=== PATIENT | male | born 1965 | race Caucasian/White ===

== ENCOUNTER 2018-05-23 10:26 | Emergency (ER) | payer SELFPAY ==
[2018-05-23] MEDS ORDERED: SODIUM CHLORIDE 0.9% (FLUSH) 10 ML SYG IV PRN (10:37)
[2018-05-23] MEDS ORDERED: SODIUM CHLORIDE 0.9% 1000ML 1,000 ML IVS PRN (10:37)
--- NOTE | 2018-05-23 10:42 | ED.PDOC ---
History of Present Illness - General Chief Complaint: Head Injury Stated Complaint: fall Time Seen by Provider: 05/23/18 10:38 Source: EMS Exam Limitations: clinical condition - non verbal, physical impairment - History of Present Illness Initial Comments: Flaco Estrada 52 y/o male [place] by EMS [place] fell face down then had brief LOC,unresponsive after incident but on his arrival he was awake ,staring and non verbal. Occurred: just prior to arrival Severity: severe Pain Location: head Method of Injury: fall Improving Factors: nothing Worsening Factors: nothing Loss of Consciousness: brief (seconds) Associated Symptoms (Fall): other - non verbal Allergies/Adverse Reactions: Allergies NO KNOWN ALLERGY Allergy (Verified 05/23/18 10:36) Review of Systems - Review of Systems Constitutional: States: no symptoms reported, weakness EENTM: States: no symptoms reported Respiratory: States: no symptoms reported Cardiology: States: no symptoms reported Unable to Obtain Due To: condition, other - non vebal Past Medical History (General) - Patient Medical History Hx Stroke: Yes Family Medical History - Family History Father Family History: Unknown Living Status: Unknown Physical Exam - Physical Exam General Appearance: Other - awake,non verbal Head Injury: other - t shaped laceration scalp Eye Exam: bilateral normal ENT Exam: no evidence of ENT injury, no dental injury Neck Exam: non-tender, normal inspection Cardiovascular/Respiratory: regular rate, rhythm, no M/R/G, normal peripheral pulses Gastrointestinal/Abdominal: non tender, soft Back Exam: normal inspection Extremity Exam: no evidence of injury, non-tender, no pedal edema Neurologic: no motor/sensory deficits, other - stare when name mentioned non verbal Skin Exam: normal color - Garrett Coma Score Best Eye Response ([place]): (4) open spontaneously Best Verbal Response ([place]): (2) incomprehsible sounds Best Motor Response ([place]): (5) localizes to pain Progress - Progress Progress: 05/23/18 11:30 Vital Signs - 8 hr 05/23/18 05/23/18 10:38 10:41 Temperature 96.8 F L Pulse Rate [ 100 H Right Brachial] Respiratory 22 24 Rate Blood Pressure 198/131 [Right Arm] O2 Sat by Pulse 98 97 Oximetry - EKG/XRAY/CT EKG: Sinus, no ST T wave changes Comments: HR-92 CT Ordered: Yes - head,neck, chest,abdomen-no acute findings Departure - Departure Clinical Impression: Hyponatremia Fall down stairs Qualifiers: Encounter type: initial encounter Qualified Code(s): W10.8XXA - Fall (on) (from) other stairs and steps, initial encounter Laceration of forehead Qualifiers: Encounter type: initial encounter Qualified Code(s): S01.81XA - Laceration without foreign body of other part of head, initial encounter Brain concussion Qualifiers: Encounter type: initial encounter Loss of consciousness presence/duration: with LOC of unspecified duration Qualified Code(s): S06.0X9A - Concussion with loss of consciousness of unspecified duration, initial encounter Time of Disposition: 11:55 Disposition: Transfer to Hospital Condition: Fair Departure Forms: ED Discharge - Pt. Copy, Patient Portal Self Enrollment Instructions: DI for Concussion, DI for Closed Head Injury Transfer to Outside Facility - Transfer Information Accepting Provider:: Dr. Swapna Man Accepting Facility: [facility] Reason for Transfer: required specialist not available - neurologist/neurosurgeon
[2018-05-23 10:49] VITALS: TEMP 96.8
--- NOTE | 2018-05-23 11:07 | RAD ---
EXAM DESCRIPTION: Chest,1 View CLINICAL HISTORY: 52 years Male, trauma COMPARISON: None. TECHNIQUE: AP portable chest. FINDINGS: Heart size is prominent with increased pulmonary vascularity. No consolidating infiltrate. No pulmonary mass or worrisome nodule. No pneumothorax or pleural effusion. Bones are unremarkable. IMPRESSION: Large heart with mildly increased vascularity. Electronically signed by: Gomez Ortiz MD 05/23/2018 11:04 AM [employer] METAL[employer]ING SUPERVISOR
--- NOTE | 2018-05-23 11:10 | CT ---
EXAM DESCRIPTION: Abdomen/Pelvis w/Contrast CLINICAL HISTORY: 52 years Male, trauma COMPARISON: None available. TECHNIQUE: Contiguous 3 mm axial images were obtained from the lung bases to the level of the proximal femora after the administration of intravenous and oral contrast. Sagittal and coronal reconstructions were reviewed. FINDINGS: THORAX: The imaged lower thorax demonstrates no gross abnormality. LIVER: The liver demonstrates diffuse fatty infiltration. No evidence of lacerations. GALLBLADDER: Grossly unremarkable. PANCREAS: Appears normal with no cystic or solid lesions. SPLEEN: Normal ADRENAL GLANDS: Normal with no nodules or masses. KIDNEYS: Both kidneys enhance symmetrically with no hydronephrosis or nephrolithiasis or perinephric fluid collections. No evidence of lacerations or hemorrhage. The visualized ureters appear grossly unremarkable. STOMACH: Small hiatal hernia with evidence of reflux. The stomach is not well-distended limiting evaluation. SMALL BOWEL: The small bowel loops demonstrate variable degrees of distention with no abnormal dilatation or other signs to suggest bowel obstruction. LARGE BOWEL: Majority of the colon is not well-distended limiting detailed evaluation. However no evidence of eccentric hematoma or bowel injury. The appendix is well-visualized and appears normal No evidence of free intraperitoneal air or fluid. RETROPERITONEUM: The abdominal aorta is nonaneurysmal with no significant atherosclerosis. The inferior vena cava is normal in size and caliber. No abnormally enlarged retroperitoneal lymph nodes are identified. URINARY BLADDER: The urinary bladder is significantly distended with no evidence of injury or rupture. The prostate gland and seminal vesicles appear normal. ADDITIONAL FINDINGS: None. BONES: Minimal degenerative changes are identified in the visualized bones.No evidence of osteophytic or osteoblastic lesions. IMPRESSION: No evidence of acute traumatic injury within the abdomen and pelvis. Incidental note is made of hepatic steatosis. Small hiatal hernia and reflux esophagitis is also noted. This exam was performed according to our departmental dose-optimization program, which includes automated exposure control, adjustment of the mA and/or kV according to patient size and/or use of iterative reconstruction technique. Electronically signed by: Tory Xiong MD 05/23/2018 11:06 AM FOREMAN OR SUPERVISOR AND OPERATOR
--- NOTE | 2018-05-23 11:12 | CT ---
EXAM DESCRIPTION: Head CLINICAL HISTORY: trauma COMPARISON: None available TECHNIQUE: Contiguous axial images through the head were obtained without intravenous contrast administration. Sagittal and coronal reconstructions were reviewed. FINDINGS: Slightly limited evaluation due to motion artifact and streak artifact especially at the skull base. No evidence of acute major vascular territorial infarct or intraparenchymal hemorrhage. No intra-axial or extra-axial fluid collections are identified. The ventricles and cisterns appear normal in caliber. The sella and suprasellar regions appear normal. The structures of the posterior fossa are intact. The globes are intact bilaterally. The visualized paranasal sinuses and mastoid air cells are well-aerated. Left frontal scalp hematoma is noted. No definite skull fracture is visualized. IMPRESSION: Slightly limited evaluation due to motion artifact and streak artifact especially at the skull base. Left frontal scalp hematoma is noted. No definite bony abnormality or acute intracranial process is identified by CT. This exam was performed according to our departmental dose-optimization program, which includes automated exposure control, adjustment of the mA and/or kV according to patient size and/or use of iterative reconstruction technique. Electronically signed by: Tory Xiong MD 05/23/2018 11:09 AM [facility]
--- NOTE | 2018-05-23 11:16 | CT ---
EXAM DESCRIPTION: Cervical Spine CLINICAL HISTORY: trauma COMPARISON: None Available. TECHNIQUE: Cervical CT is performed with thin-section axial imaging. MPRs are created and reviewed as well. FINDINGS: The craniocervical junction is intact. The odontoid process is in good alignment with the lateral masses of C2. Straightening of the normal lordotic curvature is noted. The vertebral body heights are well-maintained with no acute compression deformity. The intervertebral disc spaces are well preserved. No evidence of subluxation or spondylolisthesis. The visualized prevertebral and paravertebral soft tissues appear normal. IMPRESSION: No acute traumatic abnormality is noted in the cervical spine. This exam was performed according to our departmental dose-optimization program, which includes automated exposure control, adjustment of the mA and/or kV according to patient size and/or use of iterative reconstruction technique. Electronically signed by: Tory Xiong MD 05/23/2018 11:13 AM STRIP STAMP STRAIGHTENER
--- NOTE | 2018-05-23 11:19 | CT ---
EXAM DESCRIPTION: Chest w/Contrast CLINICAL HISTORY: 52 years Male, trauma COMPARISON: None available TECHNIQUE: Contiguous thin section axial images through the chest were obtained after the administration of intravenous contrast. Sagittal and coronal reconstructions were reviewed. FINDINGS: The visualized thyroid gland and supraclavicular region appear normal. No evidence of abnormally enlarged mediastinal, hilar or axillary lymphadenopathy. Trachea is midline and the central tracheobronchial tree is patent. The lungs are clear with no acute consolidation or hyperinflation. No evidence of pneumothorax or pulmonary hemorrhage or contusions. No evidence of pleural effusions. The heart is normal in size with no pericardial effusion. The visualized aorta is nonaneurysmal with no significant atherosclerosis. The superior vena cava is normal in size and caliber.No significant coronary artery atherosclerosis. No evidence of mediastinal hematoma. The esophagus appears normal throughout its visualized length. Hepatic steatosis is again noted. Mild degenerative changes are identified throughout the thoracic spine. No acute fracture is visualized. IMPRESSION: No acute traumatic abnormality is noted within the chest. This exam was performed according to our departmental dose-optimization program, which includes automated exposure control, adjustment of the mA and/or kV according to patient size and/or use of iterative reconstruction technique. Electronically signed by: Tory Xiong MD 05/23/2018 11:16 AM MAIL CARRIER
[2018-05-23] MEDS ORDERED: LABETALOL INJ 5 MG/ML VIAL IV ONE (11:25)
[2018-05-23] MEDS ORDERED: LABETALOL INJ 5 MG/ML VIAL ONE (11:25)
[2018-05-23] MEDS ORDERED: TETANUS,DIPHTHERIA,PERTUSSIS 1 EA SYG IM ONE (11:26)
[2018-05-23 12:21] VITALS: BP 186/104; O2SAT 98
== END 2018-05-23 12:21 | disposition short-term general hospital (02) ==
LOC: ER 10:26
DX: S06.0X1A Concussion with loss of consciousness of 30 minutes or less, initial encounter (principal); S01.81XA Laceration without foreign body of other part of head, initial encounter; E87.1 Hypo-osmolality and hyponatremia; K44.9 Diaphragmatic hernia without obstruction or gangrene; K76.0 Fatty (change of) liver, not elsewhere classified; Z86.73 Personal history of transient ischemic attack (TIA), and cerebral infarction without residual deficits; W10.9XXA Fall (on) (from) unspecified stairs and steps, initial encounter; Y92.240 Courthouse as the place of occurrence of the external cause
CPT/HCPCS: 70450; 71045; 71260; 72125; 74177; 80053; 80307; 80320; 81001; 82150; 85025; 85610; 85730; 90471; 90715; 93005; 94770; J7030